=== PATIENT | female | born 1985 ===

== ENCOUNTER 2022-11-01 08:40 | Emergency (ER) | payer OTHER, SELFPAY ==
--- NOTE | ~2022-11-01 | XR_ITS ---
EXAMINATION: XR CHEST CLINICAL INFORMATION: Cough. Covid infection. COMPARISON: None available. TECHNIQUE: Frontal view of the chest was obtained. FINDINGS: No significant abnormality is noted involving the heart, lungs, mediastinum, bony thorax or soft tissues. XR/XR chest 1V IMPRESSION: Unremarkable examination.
[2022-11-01 09:05] VITALS: BP 158/109; PULSE 103; RESP 22; TEMP 36.9; O2SAT 98; BMI 36.4
[2022-11-01 09:53] LABS: Influenza A PCR NEGATIVE (Negative); Influenza B PCR NEGATIVE (Negative); Resp Syncy Virus RNA Qual PCR NEGATIVE (Negative); SARS COV2 PCR INHOUSE POSITIVE (Negative)
[2022-11-01 10:15] VITALS: BP 159/95; PULSE 102; RESP 18; O2SAT 99
--- NOTE | 2022-11-01 10:38 | ED.URI ---
HPI - URI/Sore Throat General Chief Complaint: Upper Respiratory Symptoms Stated Complaint: cough sob Time Seen by Provider: 11/01/22 10:12 Source: patient, RN notes reviewed and old records reviewed Mode of arrival: ambulatory History of Present Illness HPI Narrative: 37-year-old female with no significant past medical history presenting to the ED complaining of nonproductive cough, SOB, chest discomfort at night x few days. Also reports posttussive emesis. Admits last night chest pain sharp & worse with breathing, denies at present. 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 Denies fever, chills, recent travel, sore throat, pedal edema, history of clots MD elicited complaint: cough Related Data Allergies Allergy/AdvReac Type Severity Reaction Status Date / Time No Known Allergies Allergy Verified 11/01/22 09:08 Review of Systems Review of Systems: Constitutional: No Fever, No Chills, No Fatigue, No Malaise ENT/Mouth: No Hearing loss, No Ear Pain, + Nasal Congestion, No Sinus Pain, No Hoarseness, No sore throat, No Rhinorrhea, No Swallowing Difficulty Eyes: No Eye Pain, No Swelling, No Redness, No Vision Changes Cardiovascular: + Chest Pain, + SOB, No Orthopnea, No Edema, No Palpitations Respiratory: + Cough, No Sputum, No Wheezing, No Smoke Exposure, No Dyspnea Gastrointestinal: No Nausea, No Vomiting, No Diarrhea, No Constipation, No Abdominal pain Genitourinary: No Dysuria, No Urinary Frequency, No Flank Pain Musculoskeletal: No joint pain, No Myalgias, No Joint Swelling Skin: No Skin Lesions, No rash Neuro: No Weakness, No Numbness, No Headache Yes all other systems are reviewed and are negative Constitutional: Constitutional: Reports as per [facility] Past Medical History Attestation statement: The following information was validated with the patient. Source: old records reviewed Social History Social History Advance Directives: No Advance Directives Information Provided: Yes Physical Exam Vital Signs: Vital Signs: Last Vital Signs Temp 98.4 F 11/01/22 09:05 Pulse 102 H 11/01/22 10:15 Resp 18 11/01/22 10:15 BP 159/95 H 11/01/22 10:15 Pulse Ox 99 11/01/22 10:15 O2 Del Method Room Air 11/01/22 10:15 BMI result Body Mass Index 36.4 Const: General: cooperative, healthy appearing and no acute distress Orientation/consciousness: patient oriented x3 Limitations: no limitations HEENT: Head: Yes normal to inspection and Yes atraumatic Ears: hearing grossly normal bilaterally General nose exam: Normal external nose present Face and sinus: Yes normal facial exam Eyes: General: appearance normal, both eyes and all related structures EOM: EOMs intact bilaterally Neck: Neck: Yes normal visual inspection and Yes no meningeal signs Resp: Effort & Inspection: normal respiratory effort and no respiratory distress Auscultation: clear to auscultation bilaterally, no crackles and no wheezes Cardio: Rate: regular rate and tachycardic Heart sounds: S1 normal heart sound present and S2 normal heart sound present Skin: Rashes: no rashes Wounds: no wounds Neuro: General: patient oriented x3, tone normal and no meningeal signs Gait exam (Neuro): Normal gait present Extrem: General: Yes normal to inspection, Yes no pedal edema and Yes no calf tenderness Course Course Course Narrative: -COVID-19 positive -1241--no leukocytosis. D-dimer WNL, PE unlikely. Troponin WNL -chest x-ray unremarkable Results discussed with patient including worrisome signs and symptoms and strict return precautions, and when to return to the emergency department. They verbalized understanding and feel safe for discharge at this time. Medical Decision Making Medical Decision Making [facility] Narrative: 37-year-old female with no significant past medical history presenting to the ED complaining of nonproductive cough, SOB, chest discomfort at night x few days. On exam initially tachycardic, tachypneic, anxious/tearful, NAD, nontoxic appearing, lungs see taking no pedal edema/calf tenderness. Concern for viral illness including COVID-19 vs pneumonia or bronchitis. PE lower differential however cannot PERC out. No suspicion for ACS/CHF Plan: EKG, labs, CXR, COVID/flu/RSV testing Please refer to course for remaining clinical decision making, interpretation of labs/imaging results, and discussions with consultants and/or family members. Differential Diagnosis Differential Diagnoses: The differential diagnosis associated with the presentation includes As above Admission/Observation Consideration of admission/observation: Escalation of care including admission/observation considered Lab Data [facility] Lab Attestation statement: I reviewed the patient's lab results. 11/01/22 11:40 11/01/22 11:40 Labs: Lab Results 11/01/22 11/01/22 11/01/22 Range/Units 09:10 11:40 11:40 WBC 9.3 (4.8-10.8) X10*3/uL RBC 5.52 H (4.20-5.50) X10*6/uL Hgb 15.7 (12.0-16.0) g/dl Hct 47.7 H (37.0-47.0) % MCV 86.4 (80.0-98.0) fL MCH 28.4 (27.0-33.0) pg MCHC 32.9 (31.0-35.0) g/dl RDW 13.5 (11.0-16.0) % Plt Count 391 (160-400) X10*3/uL MPV 9.3 L (9.4-12.3) fL Immature Gran % (Auto) 0.4 (0.0-0.4) % Neut % (Auto) 81.2 H (45-73) % Lymph % (Auto) 7.1 L (20-40) % [place] % (Auto) 5.8 (2-11) % Eos % (Auto) 4.8 H (0-4) % Baso % (Auto) 0.7 (0-2) % Lymph # (Auto) 0.7 L (1.2-4.9) X10*3/uL [place] # (Auto) 0.5 (0.1-1.2) X10*3/uL Eos # (Auto) 0.5 H (0.0-0.4) X10*3/uL Baso # (Auto) 0.1 (0.0-0.2) X10*3/uL Abs Immat Gran (auto) 0.04 H (0.00-0.03) X10*3/uL Absolute Neuts (auto) 7.6 (2.0-8.3) x10*3/uL Absolute Nucleated RBC 0.000 (0.0-0.012) X10*3/uL Nucleated RBC % (auto) 0.0 (0.0-0.2) /100WBC D-Dimer High Sensitivty < 150 NG/ML Sodium (135-145) mmol/L Potassium (3.3-5.1) mmol/L Chloride (96-108) mmol/L Carbon Dioxide (22-29) mmol/L Anion Gap (12-20) BUN (9-16) mg/dL Creatinine (0.5-1.4) mg/dL Estim Creat Clear Calc Estimated GFR Random Glucose (60-115) mg/dL Calcium (8.4-10.2) mg/dL Troponin I High Sens (<3.5-17.0) ng/L Influenza Type A (PCR) NEGATIVE (Negative) Influenza Type B (PCR) NEGATIVE (Negative) RSV RNA Qual (PCR) NEGATIVE (Negative) SARS-CoV-2 RNA (RT-PCR) POSITIVE A (Negative) 11/01/22 11/01/22 Range/Units 11:40 11:40 WBC (4.8-10.8) X10*3/uL RBC (4.20-5.50) X10*6/uL Hgb (12.0-16.0) g/dl Hct (37.0-47.0) % MCV (80.0-98.0) fL MCH (27.0-33.0) pg MCHC (31.0-35.0) g/dl RDW (11.0-16.0) % Plt Count (160-400) X10*3/uL MPV (9.4-12.3) fL Immature Gran % (Auto) (0.0-0.4) % Neut % (Auto) (45-73) % Lymph % (Auto) (20-40) % [place] % (Auto) (2-11) % Eos % (Auto) (0-4) % Baso % (Auto) (0-2) % Lymph # (Auto) (1.2-4.9) X10*3/uL [place] # (Auto) (0.1-1.2) X10*3/uL Eos # (Auto) (0.0-0.4) X10*3/uL Baso # (Auto) (0.0-0.2) X10*3/uL Abs Immat Gran (auto) (0.00-0.03) X10*3/uL Absolute Neuts (auto) (2.0-8.3) x10*3/uL Absolute Nucleated RBC (0.0-0.012) X10*3/uL Nucleated RBC % (auto) (0.0-0.2) /100WBC D-Dimer High Sensitivty NG/ML Sodium 140 (135-145) mmol/L Potassium 3.7 (3.3-5.1) mmol/L Chloride 105 (96-108) mmol/L Carbon Dioxide 26 (22-29) mmol/L Anion Gap 13 (12-20) BUN 7 L (9-16) mg/dL Creatinine 0.76 (0.5-1.4) mg/dL Estim Creat Clear Calc 91.9 Estimated GFR > 60 Random Glucose 98 (60-115) mg/dL Calcium 9.7 (8.4-10.2) mg/dL Troponin I High Sens < 2.7 (<3.5-17.0) ng/L Influenza Type A (PCR) (Negative) Influenza Type B (PCR) (Negative) RSV RNA Qual (PCR) (Negative) SARS-CoV-2 RNA (RT-PCR) (Negative) Independent Interpretation I performed an independent interpretation of an: EKG (EKG sinus tachycardia rate of 106. QTC 441. No STEMI. Nonischemic) Radiology Impression Discussion of test interpretation with radiology: I have reviewed the radiologist's reading. External Record Review External record reviewed: Inpatient record, Office record, Outpatient record, Prior outpatient labs, Prior outpatient radiology, Primary care record and Outside ED record Tests considered The following testing was considered but not selected: As above Discharge Plan Discharge Clinical Impression: COVID-19 Patient Disposition: Home, Self-Care Instructions: COVID-19 (Coronavirus Disease 2019) (ED) Additional Instructions: At this time you will be okay for discharge. Please self isolate for 5 days. Do not expose yourself to others. You may not go to work or school. Please continue to follow cold instructions and wash your hands frequently. You may take Tylenol / Motrin as directed on the bottle for pain or fever. If you have constant or persistent shortness of breath, fever unresolved with medications, chest pain, or your unable to eat or drink please return to the ED CDC Guidelines for home isolation: - Stay away from others - WEAR A MASK if you are sick AND STAY HOME - Cover your mouth and nose with a tissue when you cough or sneeze. Dispose of tissues in a lined trash can and wash your hands immediately with soap and water for at least 20 seconds. If soap and water are not available, clean hands with alcohol-based hand director mobile that contains at least 60% alcohol. - Clean your hands often with soap and water for at least 20 seconds - Avoid touching your eyes, nose and mouth with unwashed hands - Do not share dishes, drinking glasses, cups, eating utensils, towels, or bedding with other people in your home. After using these items, wash them thoroughly with soap and water or put in the granite block paver. - Clean high-touch surfaces in your isolation area ( sick room and bathroom) every day; let a caregiver clean and disinfect high-touch surfaces in other areas of the home. Clean the area or item with soap and water or another detergent if it is dirty. Then, use a household disinfectant. - Limit contact with pets and animals: If you must care for a pet, wash your hands before and after interacting with them) Referrals: Physician,None [Primary Care Provider] - Interventions: ED Discharge Assessment Last Done: 11/01/22 13:26 Discharge Date/Time: 11/01/22 13:26
--- NOTE | 2022-11-01 10:45 | ECG_ITS ---
Test Reason : sob Blood Pressure : / mmHG Vent. Rate : 106 BPM Atrial Rate : 106 BPM P-R Int : 168 ms QRS Dur : 080 ms QT Int : 332 ms P-R-T Axes : 053 042 035 degrees QTc Int : 441 ms Sinus tachycardia Otherwise normal ECG No previous ECGs available Referred By: Krystyna Cabrera Electronically Signed By:Sabino Uribe
[2022-11-01 11:44] LABS: MANUAL DIFF FLAG NO
[2022-11-01 11:58] LABS: Basophils Absolute Auto 0.1 X10*3/uL (0.0-0.2); Basophils Percent Auto 0.7 % (0-2); Eosinophils Absolute Auto 0.5 X10*3/uL (0.0-0.4); Eosinophils Percent Auto 4.8 % (0-4); Hematocrit 47.7 % (37.0-47.0); Hemoglobin 15.7 g/dl (12.0-16.0); Imm Gran Abs Auto 0.04 X10*3/uL (0.00-0.03); Imm Gran Pct Auto 0.4 % (0.0-0.4); Lymphocytes Absolute Auto 0.7 X10*3/uL (1.2-4.9); Lymphocytes Percent Auto 7.1 % (20-40); Mean Corpuscular HGB Conc 32.9 g/dl (31.0-35.0); Mean Corpuscular Hemoglobin 28.4 pg (27.0-33.0); Mean Corpuscular Volume 86.4 fL (80.0-98.0); Mean Platelet Volume 9.3 fL (9.4-12.3); Monocytes Absolute Auto 0.5 X10*3/uL (0.1-1.2); Monocytes Percent Auto 5.8 % (2-11); Neutrophils Absolute Auto 7.6 x10*3/uL (2.0-8.3); Neutrophils Percent Auto 81.2 % (45-73); Platelet Count 391 X10*3/uL (160-400); Red Blood Count 5.52 X10*6/uL (4.20-5.50); Red Cell Distribution Width 13.5 % (11.0-16.0); White Blood Count 9.3 X10*3/uL (4.8-10.8)
[2022-11-01 12:06] LABS: Anion Gap 13 (12-20); Blood Urea Nitrogen 7 mg/dL (9-16); Calcium 9.7 mg/dL (8.4-10.2); Carbon Dioxide 26 mmol/L (22-29); Chloride 105 mmol/L (96-108); Creatinine Clr Calc Pharmacy 91.9; Estimated Glomerular Filt Rate > 60; Glucose Random 98 mg/dL (60-115); Potassium 3.7 mmol/L (3.3-5.1); Sodium 140 mmol/L (135-145)
[2022-11-01 12:16] LABS: Troponin-I High Sensitivity < 2.7 ng/L (<3.5-17.0)
[2022-11-01 12:29] LABS: D Dimer High Sensitivity < 150 NG/ML
== END 2022-11-01 13:26 | disposition home or self-care (01) ==
PROVIDERS: Physician Assistant; Emergency Provider Emergency Medicine
DX: U07.1 COVID-19 (principal); R06.02 Shortness of breath
CPT/HCPCS: 0241U; 36415; 71045; 80048; 84484; 85025; 85379; 93005; 99283

== ENCOUNTER 2022-11-22 12:34 | Emergency (ER) | payer OTHER, SELFPAY ==
--- NOTE | ~2022-11-22 | XR_ITS ---
EXAMINATION: XR CHEST CLINICAL INFORMATION: Wheezing. COMPARISON: 6 10/28/2022 chest radiograph. TECHNIQUE: 2 views of the chest were obtained. FINDINGS: No significant abnormality is noted involving the heart, lungs, mediastinum, bony thorax or soft tissues. XR/XR chest 2V IMPRESSION: No acute cardiopulmonary process.
[2022-11-22 12:36] VITALS: BP 152/101; PULSE 121; RESP 20; TEMP 36.3; O2SAT 100; BMI 36.1
--- NOTE | 2022-11-22 12:37 | ED.GENADULT ---
HPI - General Adult General Chief complaint: Dyspnea Stated complaint: Diff Breathing Time Seen by Provider: 11/22/22 13:28 Source: patient and RN notes reviewed Mode of arrival: ambulatory Limitations: no limitations History of Present Illness HPI narrative: This is a 37-year-old female, with no known past medical history, presenting to the emergency department with shortness of breath since last night. Patient reports that she had COVID-19 in October. Patient reports that she has no history of asthma. Denies any fevers, chills, chest pain, palpitations, nausea, abdominal pain, vomiting or diarrhea. No other complaints or concerns at this time. MD complaint: Shortness of breath Onset (ago): day(s) Relieving factors: none Exacerbating factors: none Associated symptoms: denies other symptoms Treatments prior to arrival: none Related Data Previous Rx's Medication Instructions Recorded albuterol sulfate 2.5 mg/0.5 mL 5 mg inhalation Q6H PRN shortness 11/22/22 solution for nebulization of breath or wheezing #30 ea albuterol sulfate 90 mcg/actuation 1 inh inhalation QID PRN shortness 11/22/22 aerosol inhaler of breath or wheezing #6.7 grams benzonatate 100 mg capsule 100 mg PO BID PRN cough #14 caps 11/22/22 prednisone 50 mg tablet 50 mg PO DAILY 4 days #4 tabs 11/22/22 Allergies Allergy/AdvReac Type Severity Reaction Status Date / Time No Known Allergies Allergy Verified 11/01/22 09:08 Review of Systems Review of Systems: Constitutional: No Weight loss, No Fever, No Chills ENT/Mouth: No Ear Pain, No Nasal Congestion, No Sinus Pain, No Hoarseness, No sore throat, No Rhinorrhea, No Swallowing Difficulty Cardiovascular: No Chest Pain, +SOB Respiratory: No Cough, No Sputum, +Wheezing Gastrointestinal: No Nausea, No Vomiting, No Diarrhea, No Constipation, No Abdominal pain Genitourinary: No Dysuria, No Urinary Frequency, No Hematuria, No Urinary Incontinence/retention, No Urgency, No Flank Pain Musculoskeletal: No joint pain, No Myalgias, No Joint Swelling Skin: No Skin Lesions, No rash Neuro: No Weakness, No Numbness, No Paresthesias Yes all other systems are reviewed and are negative Constitutional: Constitutional: Reports as per [facility] Social History Social History Alcohol intake: never Smoked in Last 30 Days: No Use of substances other than those prescribed or required for medical reasons: No Advance Directives: No Physical Exam ED Vital Signs: Vital Signs - 24 hr 11/22/22 12:36 11/22/22 13:44 11/22/22 15:15 Temperature 97.4 F Pulse Rate 121 H 121 H 121 H Respiratory Rate 20 16 18 Blood Pressure 152/101 H 139/89 Pulse Oximetry 100 98 Oxygen Delivery Method Room Air Room Air BMI result Body Mass Index 36.1 Const General: cooperative, comfortable and no acute distress Orientation/consciousness: patient oriented x3 Limitations: no limitations HENMT Head: Yes normal to inspection, Yes normocephalic and Yes atraumatic Ears: hearing grossly normal bilaterally General nose exam: Normal external nose present Face and sinus: Yes normal facial exam Mouth: Normal oral and palatal mucosa present, oropharynx normal and moist mucous membranes Throat: Yes posterior oropharynx normal Eyes General: appearance normal, both eyes and all related structures Eyelids: Yes eyelids normal Conjunctivae: conjunctivae normal Sclerae: sclerae normal Pupils: Equal, round and reactive pupils present EOM: EOMs intact bilaterally Neck Neck: Yes normal visual inspection, Yes full ROM and Yes no lymphadenopathy Lymphatic: no lymphadenopathy noted Chest Chest palpation & inspection: normal inspection of the chest Resp Other: right lower lung with inspiratory and expiratory wheezes. Effort & Inspection: normal respiratory effort and able to speak in complete sentences Cardio Rate: regular rate Rhythm: regular rhythm Heart sounds: S1 normal heart sound present and S2 normal heart sound present GI Inspection: Yes normal to inspection Skin General skin exam: no rashes or lesions noted Trauma: no lacerations or abrasions Wounds: no wounds Neuro General: patient oriented x3 and moves all extremities Cranial nerves: Yes Equal, round and reactive pupils present Extrem General: Yes normal to inspection Right upper extremity: normal to inspection Left upper extremity: normal to inspection Right lower extremity: normal to inspection Left lower extremity: normal to inspection Course Course Course Narrative: This is an RME: Additional HPI, ROS, PE not included below will be deferred to primary provider. Patient is a 37-year-old female with history of Covid infection earlier this month, nonsmoker, presenting to the emergency department with shortness of breath since last night. Denies history of asthma. Wheezing L>R. Reports pain with deep inspiration. Denies fever. Tachycardic, elevated BP. Plan: EKG, labs, CXR Medications Administered Discontinued Medications Generic Name Dose Route Start Last Admin Trade Name Adamaris PRN Reason Stop Dose Admin Acetaminophen 975 mg 11/22/22 13:55 11/22/22 14:06 Acetaminophen 325 Mg Tablet PO 11/22/22 13:56 975 mg ONCE ONE Administration Albuterol Sulfate 5 mg 11/22/22 13:33 11/22/22 13:43 Albuterol Sulfate (0.083%) 2.5 Mg/3 Ml Vial.Neb INHALE 11/22/22 13:34 5 mg ONCE ONE Administration Sodium Chloride 1,000 mls @ 999 mls/hr 11/22/22 13:56 11/22/22 16:22 Ns IV 11/22/22 14:56 Infused .Q1H1M ONE Infusion Methylprednisolone Sodium Succinate 125 mg 11/22/22 13:33 11/22/22 13:39 Methylprednisolone Sod Succ 125 Mg/2 Ml Vial IVPUSH 11/22/22 13:34 125 mg ONCE ONE Administration Medical Decision Making Medical Decision Making [facility] Narrative: 37-year-old female presenting to the emergency department with complaints of shortness of breath since last night. Patient tachycardic at 121 lungs with inspiratory and expiratory wheezes in the right lower base. Mildly hypertensive at 152/101. Patient is afebrile. Chest x-ray, EKG, basic labs ordered. Patient given 125 IV Solu-Medrol and 5 mg albuterol updraft. Wheezing has resolved. After updraft, patient is feeling much better, is still tachycardic however likely due to albuterol. Patient has had no chest pain or palpitations. PERC negative. Will treat with five-day course of steroids and given albuterol inhaler and nebulizer solution as daughter has nebulizer at home. Educated on return precautions. Patient understands and agrees with plan. Differential Diagnosis Differential Diagnoses: The differential diagnosis associated with the presentation includes Upper respiratory infection, pneumonia, reactive airway disease, pneumothorax Admission/Observation Consideration of admission/observation: Escalation of care including admission/observation considered Shortness of breath, tachycardic Lab Data [facility] Lab Attestation statement: I reviewed the patient's lab results. No leukocytosis, H and H within normal limits 11/22/22 13:24 11/22/22 13:24 Labs: Lab Results 11/22/22 11/22/22 11/22/22 Range/Units 13:24 13:24 13:24 WBC 7.8 (4.8-10.8) X10*3/uL RBC 5.07 (4.20-5.50) X10*6/uL Hgb 14.5 (12.0-16.0) g/dl Hct 43.5 (37.0-47.0) % MCV 85.8 (80.0-98.0) fL MCH 28.6 (27.0-33.0) pg MCHC 33.3 (31.0-35.0) g/dl RDW 14.2 (11.0-16.0) % Plt Count 426 H (160-400) X10*3/uL MPV 8.6 L (9.4-12.3) fL Immature Gran % (Auto) 0.4 (0.0-0.4) % Neut % (Auto) 79.8 H (45-73) % Lymph % (Auto) 6.5 L (20-40) % [place] % (Auto) 7.4 (2-11) % Eos % (Auto) 5.3 H (0-4) % Baso % (Auto) 0.6 (0-2) % Lymph # (Auto) 0.5 L (1.2-4.9) X10*3/uL [place] # (Auto) 0.6 (0.1-1.2) X10*3/uL Eos # (Auto) 0.4 (0.0-0.4) X10*3/uL Baso # (Auto) 0.1 (0.0-0.2) X10*3/uL Abs Immat Gran (auto) 0.03 (0.00-0.03) X10*3/uL Absolute Neuts (auto) 6.2 (2.0-8.3) x10*3/uL Absolute Nucleated RBC 0.000 (0.0-0.012) X10*3/uL Nucleated RBC % (auto) 0.0 (0.0-0.2) /100WBC Sodium 143 (135-145) mmol/L Potassium 3.5 (3.3-5.1) mmol/L Chloride 106 (96-108) mmol/L Carbon Dioxide 25 (22-29) mmol/L Anion Gap 16 (12-20) BUN 5 L (9-16) mg/dL Creatinine 0.73 (0.5-1.4) mg/dL Estim Creat Clear Calc 95.3 Estimated GFR > 60 Random Glucose 100 (60-115) mg/dL Calcium 10.3 H D (8.4-10.2) mg/dL Total Bilirubin 0.6 (0.0-1.0) mg/dL AST 22 (5-31) U/L ALT 29 (0-31) U/L Alkaline Phosphatase 92 (39-117) U/L Troponin I High Sens < 2.7 (<3.5-17.0) ng/L Total Protein 8.2 H (6.5-8.0) g/dL Albumin 4.5 (3.5-5.0) g/dL Beta HCG, Quant mIU/mL 11/22/22 Range/Units 13:24 WBC (4.8-10.8) X10*3/uL RBC (4.20-5.50) X10*6/uL Hgb (12.0-16.0) g/dl Hct (37.0-47.0) % MCV (80.0-98.0) fL MCH (27.0-33.0) pg MCHC (31.0-35.0) g/dl RDW (11.0-16.0) % Plt Count (160-400) X10*3/uL MPV (9.4-12.3) fL Immature Gran % (Auto) (0.0-0.4) % Neut % (Auto) (45-73) % Lymph % (Auto) (20-40) % [place] % (Auto) (2-11) % Eos % (Auto) (0-4) % Baso % (Auto) (0-2) % Lymph # (Auto) (1.2-4.9) X10*3/uL [place] # (Auto) (0.1-1.2) X10*3/uL Eos # (Auto) (0.0-0.4) X10*3/uL Baso # (Auto) (0.0-0.2) X10*3/uL Abs Immat Gran (auto) (0.00-0.03) X10*3/uL Absolute Neuts (auto) (2.0-8.3) x10*3/uL Absolute Nucleated RBC (0.0-0.012) X10*3/uL Nucleated RBC % (auto) (0.0-0.2) /100WBC Sodium (135-145) mmol/L Potassium (3.3-5.1) mmol/L Chloride (96-108) mmol/L Carbon Dioxide (22-29) mmol/L Anion Gap (12-20) BUN (9-16) mg/dL Creatinine (0.5-1.4) mg/dL Estim Creat Clear Calc Estimated GFR Random Glucose (60-115) mg/dL Calcium (8.4-10.2) mg/dL Total Bilirubin (0.0-1.0) mg/dL AST (5-31) U/L ALT (0-31) U/L Alkaline Phosphatase (39-117) U/L Troponin I High Sens (<3.5-17.0) ng/L Total Protein (6.5-8.0) g/dL Albumin (3.5-5.0) g/dL Beta HCG, Quant < 2 mIU/mL Independent Interpretation I performed an independent interpretation of an: EKG and Plain X-Ray Interpretation: I reviewed the x-ray, no consolidation seen, I agree with the radiology report. EKG sinus tachycardic at 107 beats per minute, no ST elevation or depression, IA interval 162, QTC 424 Radiology Impression Discussion of test interpretation with radiology: I have reviewed the radiologist's reading. Radiologist Impression: EXAMINATION: XR CHEST CLINICAL INFORMATION: Wheezing. COMPARISON: 6 10/28/2022 chest radiograph. TECHNIQUE: 2 views of the chest were obtained. FINDINGS: No significant abnormality is noted involving the heart, lungs, mediastinum, bony thorax or soft tissues. XR/XR chest 2V IMPRESSION: No acute cardiopulmonary process. Dictated By: Herve Hernandez MD Signed By: <Electronically signed by Herve Hernandez MD in OV> 11/22/22 1423 DD/ 1316 TD/TT:? 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 Your lab work was reassuring. Your lung sounds improved after receiving an albuterol updraft and IV steroids. Please take prescribed medications as directed. Drink plenty of fluids get plenty of rest. If any new or worsening symptoms occur please return for re-evaluation. Follow-up with your primary care physician. Prescriptions: New albuterol sulfate 90 mcg/actuation HFA aerosol inhaler 1 inh inhalation QID PRN (Reason: shortness of breath or wheezing) Qty: 6.7 0RF albuterol sulfate 2.5 mg/0.5 mL solution for nebulization 5 mg inhalation Q6H PRN (Reason: shortness of breath or wheezing) Qty: 30 0RF prednisone 50 mg tablet 50 mg PO DAILY 4 Days Qty: 4 0RF Rx Instructions: Start 11/23/2022 benzonatate 100 mg capsule 100 mg PO BID PRN (Reason: cough) Qty: 14 0RF Interventions: ED Discharge Assessment Last Done: 11/22/22 16:34 Discharge Date/Time: 11/22/22 16:34
--- NOTE | 2022-11-22 12:39 | ECG_ITS ---
Test Reason : SOB Blood Pressure : / mmHG Vent. Rate : 107 BPM Atrial Rate : 107 BPM P-R Int : 162 ms QRS Dur : 076 ms QT Int : 318 ms P-R-T Axes : 064 061 047 degrees QTc Int : 424 ms Sinus tachycardia Nonspecific ST abnormality Abnormal ECG When compared with ECG of 01-NOV-2022 11:23, No significant change was found Referred By: Marlene Pfeiffer Electronically Signed By:Sabino Uribe
[2022-11-22 13:30] LABS: MANUAL DIFF FLAG NO
[2022-11-22 13:35] LABS: Basophils Absolute Auto 0.1 X10*3/uL (0.0-0.2); Basophils Percent Auto 0.6 % (0-2); Eosinophils Absolute Auto 0.4 X10*3/uL (0.0-0.4); Eosinophils Percent Auto 5.3 % (0-4); Hematocrit 43.5 % (37.0-47.0); Hemoglobin 14.5 g/dl (12.0-16.0); Imm Gran Abs Auto 0.03 X10*3/uL (0.00-0.03); Imm Gran Pct Auto 0.4 % (0.0-0.4); Lymphocytes Absolute Auto 0.5 X10*3/uL (1.2-4.9); Lymphocytes Percent Auto 6.5 % (20-40); Mean Corpuscular HGB Conc 33.3 g/dl (31.0-35.0); Mean Corpuscular Hemoglobin 28.6 pg (27.0-33.0); Mean Corpuscular Volume 85.8 fL (80.0-98.0); Mean Platelet Volume 8.6 fL (9.4-12.3); Monocytes Absolute Auto 0.6 X10*3/uL (0.1-1.2); Monocytes Percent Auto 7.4 % (2-11); Neutrophils Absolute Auto 6.2 x10*3/uL (2.0-8.3); Neutrophils Percent Auto 79.8 % (45-73); Platelet Count 426 X10*3/uL (160-400); Red Blood Count 5.07 X10*6/uL (4.20-5.50); Red Cell Distribution Width 14.2 % (11.0-16.0); White Blood Count 7.8 X10*3/uL (4.8-10.8)
[2022-11-22] MEDS: methylPREDNISolone Sod Succ 125 MG/2 ML VIAL IVPUSH (13:39)
[2022-11-22] MEDS: Albuterol Sulfate (0.083%) 2.5 MG/3 ML VIAL.NEB 5 MG INHALE (13:43)
[2022-11-22 13:44] VITALS: PULSE 121; RESP 16; O2SAT 100
[2022-11-22 13:50] LABS: Alanine Aminotransferase 29 U/L (0-31); Albumin Level 4.5 g/dL (3.5-5.0); Alkaline Phosphatase 92 U/L (39-117); Anion Gap 16 (12-20); Aspartate Amino Transferase 22 U/L (5-31); Bilirubin Total 0.6 mg/dL (0.0-1.0); Blood Urea Nitrogen 5 mg/dL (9-16); Calcium 10.3 mg/dL (8.4-10.2); Carbon Dioxide 25 mmol/L (22-29); Chloride 106 mmol/L (96-108); Creatinine Clr Calc Pharmacy 95.3; Estimated Glomerular Filt Rate > 60; Glucose Random 100 mg/dL (60-115); Potassium 3.5 mmol/L (3.3-5.1); Sodium 143 mmol/L (135-145); Total Protein 8.2 g/dL (6.5-8.0)
[2022-11-22] MEDS: 0.9 % Sodium Chloride 1,000 ML 999 ML IV (13:59)
[2022-11-22 14:01] LABS: HCG Quantitative < 2 mIU/mL; Troponin-I High Sensitivity < 2.7 ng/L (<3.5-17.0)
[2022-11-22] MEDS: Acetaminophen 325 MG TABLET 975 MG PO (14:06)
--- NOTE | 2022-11-22 14:07 | PC.NURSE ---
pt medicated per JUL- NS infusing per order APAP 975 given for 8/10 headache pain
--- NOTE | 2022-11-22 15:13 | PC.NURSE ---
pt reporting that headache has improved, but reports nausea and spitting up phlegm/saliva with cough. pt tachy 120s, BP 139/89. fluids infusing per mar.
[2022-11-22 15:15] VITALS: BP 139/89; PULSE 121; RESP 18; O2SAT 98
== END 2022-11-22 16:34 | disposition home or self-care (01) ==
PROVIDERS: Registered Nurse Emergency; Emergency Provider Emergency Medicine
DX: R06.02 Shortness of breath (principal); R06.2 Wheezing; R00.0 Tachycardia, unspecified; Z79.899 Other long term (current) drug therapy
CPT/HCPCS: 36415; 71046; 80053; 84484; 84702; 85025; 93005; 94640; 96361; 96374; 99284; 99285; J2930

== ENCOUNTER 2023-06-06 08:24 | Emergency (ER) | payer OTHER, SELFPAY ==
--- NOTE | ~2023-06-06 | XR_ITS ---
EXAMINATION: XR CHEST CLINICAL INFORMATION: Cough/SOB COMPARISON: None available. TECHNIQUE: 2 views of the chest were obtained. FINDINGS: No significant abnormality is noted involving the heart, lungs, mediastinum, bony thorax or soft tissues. XR/XR chest 2V IMPRESSION: Unremarkable chest examination.
[2023-06-06 08:50] VITALS: BP 155/100; PULSE 86; RESP 19; TEMP 36.6; O2SAT 98; BMI 30.3
[2023-06-06 09:56] LABS: Influenza A PCR NEGATIVE (Negative); Influenza B PCR NEGATIVE (Negative); Resp Syncy Virus RNA Qual PCR NEGATIVE (Negative); SARS COV2 PCR INHOUSE NEGATIVE (Negative)
[2023-06-06 12:33] VITALS: PULSE 84; RESP 18; O2SAT 98
[2023-06-06] MEDS: Albuterol Sulfate 90 MCG 8 GM INHALER 2 PUFF INHALE (12:33)
--- NOTE | 2023-06-06 12:43 | ED_ITS ---
HPI - URI/Sore Throat General Chief Complaint: Upper Respiratory Symptoms Stated Complaint: Asthma Time Seen by Provider: 06/06/23 11:25 Source: patient, RN notes reviewed and old records reviewed Mode of arrival: ambulatory History of Present Illness HPI Narrative: 37-year-old female with no significant past medical history presenting to the ED complaining of dry cough, SOB, and wheezing x few days. States her house heater is currently not working and feels this is exacerbating symptoms. Admits to using inhaler at home without relief, has had respiratory issues since COVID-19 last year. Denies known fever, chest pain, trouble, pedal edema. +sick contact MD elicited complaint: cough Related Data Previous Rx's Medication Instructions Recorded albuterol sulfate 2.5 mg/0.5 mL 5 mg inhalation Q6H PRN shortness 11/22/22 solution for nebulization of breath or wheezing #30 ea albuterol sulfate 90 mcg/actuation 1 inh inhalation QID PRN shortness 11/22/22 aerosol inhaler of breath or wheezing #6.7 grams benzonatate 100 mg capsule 100 mg PO BID PRN cough #14 caps 11/22/22 prednisone 50 mg tablet 50 mg PO DAILY 4 days #4 tabs 11/22/22 benzonatate 100 mg capsule 100 mg PO TID PRN cough #14 caps 06/06/23 Allergies Allergy/AdvReac Type Severity Reaction Status Date / Time No Known Allergies Allergy Verified 06/06/23 08:50 Review of Systems Review of Systems: Constitutional: No Fever, No Chills ENT/Mouth: No Ear Pain, + Nasal Congestion, No Sinus Pain, No Hoarseness, No sore throat, No Rhinorrhea, No Swallowing Difficulty Cardiovascular: No Chest Pain, + SOB Respiratory: + Cough, No Sputum, No Wheezing Gastrointestinal: No Nausea, No Vomiting, No Diarrhea, No Constipation, No Abdominal pain Musculoskeletal: No joint pain, No Myalgias, No Joint Swelling Skin: No Skin Lesions, No rash Neuro: No Weakness Yes all other systems are reviewed and are negative Constitutional: Constitutional: Reports as per [facility] Past Medical History Attestation statement: The following information was validated with the patient. Source: old records reviewed Onset Date is defined in the Problem List Problems that require an onset date and time if occurred within 24 hrs of arrival to the ED Aortic Dissection and Rupture; Neurologic impairment; Cardiopulmonary Arrest; Endotracheal Intubation; Insertion or Replacement of Mechanical Circulatory Assist Device Social History Social History Alcohol intake: never Advance Directives: No Physical Exam Vital Signs: Vital Signs: Last Vital Signs Temp 98 F 06/06/23 08:50 Pulse 82 06/06/23 12:55 Resp 16 06/06/23 12:55 BP 145/104 H 06/06/23 12:55 Pulse Ox 99 06/06/23 12:55 O2 Del Method Room Air 06/06/23 12:55 BMI result Body Mass Index 30.3 Const: General: cooperative, healthy appearing and no acute distress Orientation/consciousness: patient oriented x3 Limitations: no limitations HEENT: Head: Yes normal to inspection and Yes atraumatic Ears: hearing grossly normal bilaterally General nose exam: Normal external nose present Face and sinus: Yes normal facial exam Mouth: Normal oral and palatal mucosa present Throat: Yes posterior oropharynx normal, Yes uvula midline and No peritonsillar mass Eyes: General: appearance normal, both eyes and all related structures EOM: EOMs intact bilaterally Neck: Neck: Yes normal visual inspection and Yes no meningeal signs Resp: Effort & Inspection: normal respiratory effort and no respiratory distr ess Auscultation: clear to auscultation bilaterally, no crackles and no wheezes Cardio: Rate: regular rate Heart sounds: S1 normal heart sound present and S2 normal heart sound present GI: Inspection: Yes normal to inspection Palpation (GI): Soft to palpation, nontender, no guarding and not rigid Skin: Rashes: no rashes Wounds: no wounds Neuro: General: patient oriented x3, tone normal and no meningeal signs Cranial nerves: Yes CN's II-XII intact bilaterally Gait exam (Neuro): Normal gait present Extrem: General: Yes normal to inspection Course Course Course Narrative: -viral testing negative Results discussed with patient including worrisome signs and symptoms and strict return precautions, and when to return to the emergency department. They verbalized understanding and feel safe for discharge at this time. Medications Administered Discontinued Medications Generic Name Dose Route Start Last Admin Trade Name Freq PRN Reason Stop Dose Admin Albuterol Sulfate 2 puff 06/06/23 12:10 06/06/23 12:33 Albuterol Sulfate 90 Mcg 8 Gm Inhaler INHALE 06/06/23 12:11 2 puff ONCE ONE Administration Medical Decision Making Medical Decision Making [facility] Narrative: 37-year-old female with no significant past medical history presenting to the ED complaining of dry cough, SOB, and wheezing x few days. States her house heater is currently not working and feels this is exacerbating symptoms. On exam hypertensive, NAD, nontoxic appearing, no respiratory distress/talking in complete sentences, lungs CTA. Concern for viral illness. Rule out pneumonia versus bronchitis very low suspicion for ACS/PE Plan: Viral testing, CXR, albuterol oral inhaler Please refer to course for remaining clinical decision making, interpretation of labs/imaging results, and discussions with consultants and/or family members. Differential Diagnosis Differential Diagnoses: The differential diagnosis associated with the presentation includes As above Lab Data [facility] Lab Attestation statement: I reviewed the patient's lab results. Labs: Lab Results 06/06/23 Range/Units 09:09 Influenza Type A (PCR) NEGATIVE (Negative) Influenza Type B (PCR) NEGATIVE (Negative) RSV RNA Qual (PCR) NEGATIVE (Negative) SARS-CoV-2 RNA (RT-PCR) NEGATIVE (Negative) Independent Interpretation I performed an independent interpretation of an: Plain X-Ray Radiology Impression Discussion of test interpretation with radiology: I have reviewed the radiologist's reading. External Record Review External record reviewed: Inpatient record, Office record, Outpatient record, Prior outpatient labs, Prior outpatient radiology, Primary care record and Outside ED record Tests considered The following testing was considered but not selected: As above Prescription Management I considered prescription management with: Pain Medication, Antiviral and Antibiotic Discharge Plan Discharge Clinical Impression: Upper respiratory infection Patient Disposition: Home, Self-Care Instructions: Viral Syndrome (ED) Additional Instructions: You have a virus No antibiotics are indicated at this time Make sure you are staying hydrated. Drink plenty of fluids. Rest Alternate Tylenol and Motrin at home as needed for body aches and fever Follow-up with your doctor. If symptoms persist or worsen return to the emergency department *If you are a child & not tolerating liquid or urinating for more than 6 hours, or fevers are uncontrolled with medications at home, return to the emergency department* Prescriptions: New benzonatate 100 mg capsule 100 mg PO TID PRN (Reason: cough) Qty: 14 0RF No Action albuterol sulfate 90 mcg/actuation HFA aerosol inhaler 1 inh inhalation QID PRN (Reason: shortness of breath or wheezing) Qty: 6.7 0RF albuterol sulfate 2.5 mg/0.5 mL solution for nebulization 5 mg inhalation Q6H PRN (Reason: shortness of breath or wheezing) Qty: 30 0RF prednisone 50 mg tablet 50 mg PO DAILY 4 Days Qty: 4 0RF Rx Instructions: Start 11/23/2022 benzonatate 100 mg capsule 100 mg PO BID PRN (Reason: cough) Qty: 14 0RF Referrals: Physician,Unknown J [Primary Care Provider] - Stand Alone Forms: Work/School Release Interventions: ED Discharge Assessment Last Done: 06/06/23 13:34 Discharge Date/Time: 06/06/23 13:35
[2023-06-06 12:55] VITALS: BP 145/104; PULSE 82; RESP 16; O2SAT 99
== END 2023-06-06 13:35 | disposition home or self-care (01) ==
PROVIDERS: Emergency Provider Emergency Medicine Emergency Medical Services
DX: J06.9 Acute upper respiratory infection, unspecified (principal); R05.9 Cough, unspecified; R06.02 Shortness of breath; Z20.822 Contact with and (suspected) exposure to COVID-19; Z20.828 Contact with and (suspected) exposure to other viral communicable diseases
CPT/HCPCS: 0241U; 71046; 94640; 94664; 99284

== ENCOUNTER 2023-06-11 12:26 | Emergency (ER) | payer OTHER, SELFPAY ==
--- NOTE | ~2023-06-11 | XR_ITS ---
EXAMINATION: XR CHEST CLINICAL INFORMATION: Chest pain and shortness of breath COMPARISON: Chest x-ray on 06/06/2023 TECHNIQUE: 2 views of the chest were obtained. FINDINGS: No significant abnormality is noted involving the heart, lungs, mediastinum, bony thorax or soft tissues. XR/XR chest 2V IMPRESSION: Unremarkable examination.
[2023-06-11 12:32] VITALS: BP 155/98; PULSE 126; RESP 20; TEMP 37.2; O2SAT 100; BMI 30.3
--- NOTE | 2023-06-11 12:33 | ED.GENADULT ---
HPI - General Adult General Chief complaint: Upper Respiratory Symptoms Stated complaint: Diff breathing Time Seen by Provider: 06/11/23 16:33 Source: patient and RN notes reviewed Mode of arrival: ambulatory Limitations: no limitations History of Present Illness HPI narrative: 37-year-old female presents for evaluation of shortness of breath and body aches. Her symptoms started last night into this morning. She reports that her daughter tested positive for the flu on Monday, 2 days ago The patient reports some mild shortness of breath over the last 3 weeks significantly worse since last night She denies any diagnosed history of asthma or COPD but has a nebulizer due to ?shortness of breath since COVID. ? She states that she feels better after getting nebulizer treatment in the ED Related Data Previous Rx's Medication Instructions Recorded albuterol sulfate 2.5 mg/0.5 mL 5 mg inhalation Q6H PRN shortness 11/22/22 solution for nebulization of breath or wheezing #30 ea albuterol sulfate 90 mcg/actuation 1 inh inhalation QID PRN shortness 11/22/22 aerosol inhaler of breath or wheezing #6.7 grams benzonatate 100 mg capsule 100 mg PO BID PRN cough #14 caps 11/22/22 prednisone 50 mg tablet 50 mg PO DAILY 4 days #4 tabs 11/22/22 benzonatate 100 mg capsule 100 mg PO TID PRN cough #14 caps 06/06/23 oseltamivir 75 mg capsule (Tamiflu) 75 mg PO BID 5 days #10 caps 06/11/23 Allergies Allergy/AdvReac Type Severity Reaction Status Date / Time No Known Allergies Allergy Verified 06/06/23 08:50 Review of Systems Constitutional: Constitutional: Reports body ache(s), Reports chills, Reports fever(s) and Reports headache(s) ENT: Reports headache(s) Cardiovascular: Cardiovascular: Reports chest pain and Reports dyspnea Respiratory: Respiratory: Reports cough and Reports dyspnea Gastrointestinal: Gastrointestinal: Denies abdominal pain, Reports nausea and Denies vomiting Musculoskeletal: Musculoskeletal: Denies back pain Integumentary/Breasts: Skin/Breast: Denies rash Neurologic: Reports headache(s) [facility] Social History Social History Alcohol intake: never Smoked in Last 30 Days: No Use of substances other than those prescribed or required for medical reasons: No Advance Directives: No Physical Exam ED Vital Signs: Vital Signs - 24 hr 06/11/23 12:32 06/11/23 16:30 06/11/23 16:53 Temperature 98.9 F 98.7 F Pulse Rate 126 H 125 H 114 H Respiratory Rate 20 22 H 18 Blood Pressure 155/98 H 153/115 H Pulse Oximetry 100 96 Oxygen Delivery Method Room Air Room Air 06/11/23 17:02 Temperature Pulse Rate Respiratory Rate Blood Pressure Pulse Oximetry 98 Oxygen Delivery Method Room Air BMI result Body Mass Index 30.3 Const General: healthy appearing, comfortable, no acute distress, alert and awake Nutritional Appearance: well nourished Orientation/consciousness: patient oriented x3 HENMT Head: Yes normocephalic and Yes atraumatic Eyes Eyelids: Yes eyelids normal Conjunctivae: conjunctivae normal Sclerae: sclerae normal Corneas: corneas normal Pupils: Equal, round and reactive pupils present EOM: EOMs intact bilaterally Neck Neck: Yes full ROM Resp Effort & Inspection: normal respiratory effort, able to speak in complete sentences, no audible wheezes and not labored Auscultation: clear to auscultation bilaterally GI Inspection: No distended Palpation (GI): Soft to palpation, not firm, nontender, no guarding and not rigid Skin General skin exam: elasticity normal Neuro General: patient oriented x3 Cranial nerves: Yes Equal, round and reactive pupils present and Yes Bilaterally intact EOM present Cognition (Neuro): normal cognition Extrem Other: Moving all extremities well without any obvious deformities Course Course Course Narrative: This is an RME: Additional HPI, ROS, PE not included below will be deferred to primary provider. 37-year-old female with no significant past medical history presenting to the ED complaining of dry cough, SOB, and wheezing x few days. She recently went to the ER and was diagnosed with a URI, prescribed nebulizer and rescue inhaler, after getting COVID last year she states that the shortness breath is getting worse. Plan: Labs, EKG,CXR, viral swabs Medications Administered Discontinued Medications Generic Name Dose Route Start Last Admin Trade Name Freq PRN Reason Stop Dose Admin Albuterol/Ipratropium 3 ml 06/11/23 16:47 06/11/23 16:53 Albuterol/Iprat 2.5/0.5mg 3 Ml Ampul.Neb INHALE 06/11/23 16:48 3 ml ONCE ONE Administration Sodium Chloride 1,000 mls @ 999 mls/hr 06/11/23 17:15 06/11/23 17:54 Ns IV 06/11/23 18:15 999 mls/hr .Q1H1M WAYNE Administration Ketorolac Tromethamine 30 mg 06/11/23 17:11 06/11/23 17:55 Ketorolac Tromethamine 30 Mg/Ml Vial IVPUSH 06/11/23 17:12 30 mg ONCE ONE Administration Ondansetron HCl 4 mg 06/11/23 17:32 06/11/23 17:55 Ondansetron Hcl 4 Mg/2 Ml Vial IVPUSH 06/11/23 17:33 4 mg ONCE ONE Administration Medical Decision Making Medical Decision Making [facility] Narrative: 37 your healthy female presents for evaluation of shortness of breath. She tested positive for influenza a which explains all of her symptoms. She was mildly tachycardic which is likely due to the influenza diagnosis as well as albuterol use. This was treated with IV fluids. She is not presenting septic. She will be discharged with Tamiflu and symptomatic care. Labs are reassuring, EKG is nonischemic repeat troponin was negative. Chest x-ray is without focal infiltrates Differential Diagnosis Differential Diagnoses: The differential diagnosis associated with the presentation includes Admission/Observation Consideration of admission/observation: Escalation of care including admission/observation considered Lab Data [facility] Lab Attestation statement: I reviewed the patient's lab results. Mild leukocytosis with no significant anemia. There is a mild left shift. No significant electrolyte abnormalities 06/11/23 12:54 06/11/23 12:54 Labs: Lab Results 06/11/23 06/11/23 Range/Units 12:54 17:06 WBC 11.0 H (4.8-10.8) X10*3/uL RBC 5.20 (4.20-5.50) X10*6/uL Hgb 15.0 (12.0-16.0) g/dl Hct 44.5 (37.0-47.0) % MCV 85.6 (80.0-98.0) fL MCH 28.8 (27.0-33.0) pg MCHC 33.7 (31.0-35.0) g/dl RDW 14.3 (11.0-16.0) % Plt Count 431 H (160-400) X10*3/uL MPV 8.4 L (9.4-12.3) fL Immature Gran % (Auto) 0.5 H (0.0-0.4) % Neut % (Auto) 85.1 H (45-73) % Lymph % (Auto) 5.4 L (20-40) % [place] % (Auto) 4.9 (2-11) % Eos % (Auto) 3.6 (0-4) % Baso % (Auto) 0.5 (0-2) % Lymph # (Auto) 0.6 L (1.2-4.9) X10*3/uL [place] # (Auto) 0.5 (0.1-1.2) X10*3/uL Eos # (Auto) 0.4 (0.0-0.4) X10*3/uL Baso # (Auto) 0.1 (0.0-0.2) X10*3/uL Abs Immat Gran (auto) 0.05 H (0.00-0.03) X10*3/uL Absolute Neuts (auto) 9.4 H (2.0-8.3) x10*3/uL Absolute Nucleated RBC 0.000 (0.0-0.012) X10*3/uL Nucleated RBC % (auto) 0.0 (0.0-0.2) /100WBC Sodium 141 (135-145) mmol/L Potassium 3.9 (3.3-5.1) mmol/L Chloride 106 (96-108) mmol/L Carbon Dioxide 24 (22-29) mmol/L Anion Gap 15 (12-20) BUN 6 L (9-16) mg/dL Creatinine 0.91 (0.5-1.4) mg/dL Estim Creat Clear Calc 69.6 Estimated GFR > 60 Random Glucose 101 (60-115) mg/dL Calcium 9.8 (8.4-10.2) mg/dL Total Bilirubin 0.3 (0.0-1.0) mg/dL AST 18 (5-31) U/L ALT 23 (0-31) U/L Alkaline Phosphatase 89 (39-117) U/L Troponin I High Sens < 2.7 < 2.7 (<3.5-17.0) ng/L Total Protein 8.2 H (6.5-8.0) g/dL Albumin 4.4 (3.5-5.0) g/dL COVID-19 (NAV) Negative (Negative) COVID-19 Clin Com See Note Influenza Type A (KUNAL) Positive A (Negative) Influenza Type B (KUNAL) Negative (Negative) Influenza A & B Note See Note Independent Interpretation I performed an independent interpretation of an: EKG (Sinus tachycardia rate of 119 beats minute. No ischemic changes) and Plain X-Ray (No focal infiltrate) Radiology Impression Discussion of test interpretation with radiology: I have reviewed the radiologist's reading. (Unremarkable chest x-ray) Discharge Plan Discharge Clinical Impression: Influenza A Patient Disposition: Home, Self-Care Instructions: Influenza (ED) Additional Instructions: Use ibuprofen/Tylenol as needed for fevers, body aches. Take Tamiflu twice daily for the next 5 days You may continue to use your albuterol inhalers as needed Follow-up with your primary doctor or return for new or worsening symptoms Prescriptions: New oseltamivir [Tamiflu] 75 mg capsule 75 mg PO BID 5 Days Qty: 10 0RF No Action albuterol sulfate 90 mcg/actuation HFA aerosol inhaler 1 inh inhalation QID PRN (Reason: shortness of breath or wheezing) Qty: 6.7 0RF albuterol sulfate 2.5 mg/0.5 mL solution for nebulization 5 mg inhalation Q6H PRN (Reason: shortness of breath or wheezing) Qty: 30 0RF prednisone 50 mg tablet 50 mg PO DAILY 4 Days Qty: 4 0RF Rx Instructions: Start 11/23/2022 benzonatate 100 mg capsule 100 mg PO BID PRN (Reason: cough) Qty: 14 0RF benzonatate 100 mg capsule 100 mg PO TID PRN (Reason: cough) Qty: 14 0RF
--- NOTE | 2023-06-11 12:36 | ECG_ITS ---
Test Reason : DYSPNEA Blood Pressure : / mmHG Vent. Rate : 119 BPM Atrial Rate : 119 BPM P-R Int : 164 ms QRS Dur : 076 ms QT Int : 302 ms P-R-T Axes : 072 072 047 degrees QTc Int : 424 ms Sinus tachycardia Possible Left atrial enlargement Borderline ECG When compared with ECG of 22-NOV-2022 13:34, No significant change was found Referred By: July Kearns Electronically Signed By:MIKE WAKEFIELD
[2023-06-11 13:01] LABS: MANUAL DIFF FLAG NO
[2023-06-11 13:02] LABS: Basophils Absolute Auto 0.1 X10*3/uL (0.0-0.2); Basophils Percent Auto 0.5 % (0-2); Eosinophils Absolute Auto 0.4 X10*3/uL (0.0-0.4); Eosinophils Percent Auto 3.6 % (0-4); Hematocrit 44.5 % (37.0-47.0); Imm Gran Abs Auto 0.05 X10*3/uL (0.00-0.03); Imm Gran Pct Auto 0.5 % (0.0-0.4); Lymphocytes Absolute Auto 0.6 X10*3/uL (1.2-4.9); Lymphocytes Percent Auto 5.4 % (20-40); Mean Corpuscular HGB Conc 33.7 g/dl (31.0-35.0); Mean Corpuscular Hemoglobin 28.8 pg (27.0-33.0); Mean Corpuscular Volume 85.6 fL (80.0-98.0); Mean Platelet Volume 8.4 fL (9.4-12.3); Monocytes Absolute Auto 0.5 X10*3/uL (0.1-1.2); Monocytes Percent Auto 4.9 % (2-11); Neutrophils Absolute Auto 9.4 x10*3/uL (2.0-8.3); Neutrophils Percent Auto 85.1 % (45-73); Platelet Count 431 X10*3/uL (160-400); Red Cell Distribution Width 14.3 % (11.0-16.0)
[2023-06-11 13:17] LABS: Alanine Aminotransferase 23 U/L (0-31); Albumin Level 4.4 g/dL (3.5-5.0); Alkaline Phosphatase 89 U/L (39-117); Anion Gap 15 (12-20); Aspartate Amino Transferase 18 U/L (5-31); Bilirubin Total 0.3 mg/dL (0.0-1.0); Blood Urea Nitrogen 6 mg/dL (9-16); Calcium 9.8 mg/dL (8.4-10.2); Carbon Dioxide 24 mmol/L (22-29); Chloride 106 mmol/L (96-108); Creatinine Clr Calc Pharmacy 69.6; Estimated Glomerular Filt Rate > 60; Glucose Random 101 mg/dL (60-115); Potassium 3.9 mmol/L (3.3-5.1); Sodium 141 mmol/L (135-145); Total Protein 8.2 g/dL (6.5-8.0)
[2023-06-11 13:18] LABS: IDNOW Serial# 6674DD1D; Influenza A Positive (Negative); Influenza B2 Negative (Negative)
[2023-06-11 13:21] LABS: COVID-19 Test Negative (Negative); IDNOW Serial# 58CA691E
[2023-06-11 13:24] LABS: Troponin-I High Sensitivity < 2.7 ng/L (<3.5-17.0)
[2023-06-11 16:30] VITALS: BP 153/115; PULSE 125; RESP 22; TEMP 37.1; O2SAT 96
[2023-06-11 16:53] VITALS: PULSE 114; RESP 18; O2SAT 96
[2023-06-11] MEDS: Albuterol/Iprat 2.5/0.5MG 3 ML AMPUL.NEB INHALE (16:53)
[2023-06-11 17:02] VITALS: O2SAT 98
[2023-06-11 17:42] LABS: Troponin-I High Sensitivity < 2.7 ng/L (<3.5-17.0)
[2023-06-11] MEDS: 0.9 % Sodium Chloride 1,000 ML 999 ML IV (17:54)
[2023-06-11] MEDS: ondansetron HCL 4 MG/2 ML VIAL IVPUSH (17:55)
[2023-06-11] MEDS: Ketorolac Tromethamine 30 MG/ML VIAL IVPUSH (17:55)
--- NOTE | 2023-06-11 17:59 | PC.NURSE ---
pt a&ox4, sinus tach, other vss, 20G IV placed R AC, medicated per MAR for generalized body aches/nausea, pt reports sob improved after breathing treatment. 1L NS running. no new orders at this time.
[2023-06-11 19:11] VITALS: BP 122/78; PULSE 131; RESP 20; O2SAT 97
[2023-06-11] MEDS: Albuterol Sulfate (0.083%) 2.5 MG/3 ML VIAL.NEB INHALE (19:18)
[2023-06-11 19:19] VITALS: PULSE 128; RESP 20; O2SAT 96
== END 2023-06-11 19:46 | disposition home or self-care (01) ==
PROVIDERS: Physician Assistant Medical; Emergency Provider Emergency Medicine
DX: J10.1 Influenza due to other identified influenza virus with other respiratory manifestations (principal); R06.02 Shortness of breath; M79.10 Myalgia, unspecified site; R00.0 Tachycardia, unspecified; Z11.52 Encounter for screening for COVID-19; Z79.899 Other long term (current) drug therapy
CPT/HCPCS: 36415; 71046; 80053; 84484; 85025; 87502; 87635; 93005; 94640; 96374; 96375; 99284; 99285; J1885; J2405

== ENCOUNTER → 2023-06-11 12:36 | Outpatient (BNV) | payer OTHER, SELFPAY | PROVIDERS: Emergency Provider Emergency Medicine; Visit Provider Internal Medicine | DX: R00.0 Tachycardia, unspecified (principal) | CPT/HCPCS: 93010 ==

== ENCOUNTER 2023-06-13 21:57 | Emergency (ER) | payer OTHER, SELFPAY ==
--- NOTE | 2023-06-13 | ECG_ITS ---
Test Reason : CP Blood Pressure : / mmHG Vent. Rate : 116 BPM Atrial Rate : 116 BPM P-R Int : 150 ms QRS Dur : 072 ms QT Int : 324 ms P-R-T Axes : 062 056 051 degrees QTc Int : 450 ms Sinus tachycardia Otherwise normal ECG When compared with ECG of 11-JUN-2023 12:51, No significant change was found Referred By: Generic ED Physician Electronically Signed By:MIKE WAKEFIELD
--- NOTE | ~2023-06-13 | XR_ITS ---
EXAMINATION: XR CHEST CLINICAL INFORMATION: Cough. COMPARISON: None available. TECHNIQUE: Frontal view of the chest was obtained. FINDINGS: No significant abnormality is noted involving the heart, lungs, mediastinum, bony thorax or soft tissues. XR/XR chest 1V IMPRESSION: Unremarkable chest exam.
[2023-06-13 22:55] VITALS: BP 155/95; PULSE 113; RESP 22; TEMP 37.3; O2SAT 96; BMI 32.3
[2023-06-13 23:30] LABS: MANUAL DIFF FLAG NO
[2023-06-13 23:31] LABS: Basophils Percent Auto 0.3 % (0-2); Eosinophils Absolute Auto 0.1 X10*3/uL (0.0-0.4); Eosinophils Percent Auto 0.8 % (0-4); Hematocrit 47.1 % (37.0-47.0); Hemoglobin 15.7 g/dl (12.0-16.0); Imm Gran Abs Auto 0.03 X10*3/uL (0.00-0.03); Imm Gran Pct Auto 0.3 % (0.0-0.4); Lymphocytes Absolute Auto 1.1 X10*3/uL (1.2-4.9); Lymphocytes Percent Auto 10.8 % (20-40); Mean Corpuscular HGB Conc 33.3 g/dl (31.0-35.0); Mean Corpuscular Hemoglobin 28.4 pg (27.0-33.0); Mean Corpuscular Volume 85.2 fL (80.0-98.0); Mean Platelet Volume 8.6 fL (9.4-12.3); Monocytes Absolute Auto 0.7 X10*3/uL (0.1-1.2); Monocytes Percent Auto 6.8 % (2-11); Neutrophils Absolute Auto 8.3 x10*3/uL (2.0-8.3); Platelet Count 420 X10*3/uL (160-400); Red Blood Count 5.53 X10*6/uL (4.20-5.50); Red Cell Distribution Width 14.1 % (11.0-16.0); White Blood Count 10.3 X10*3/uL (4.8-10.8)
[2023-06-13 23:49] LABS: Alanine Aminotransferase 25 U/L (0-31); Albumin Level 4.5 g/dL (3.5-5.0); Alkaline Phosphatase 79 U/L (39-117); Anion Gap 19 (12-20); Aspartate Amino Transferase 30 U/L (5-31); Bilirubin Total 0.4 mg/dL (0.0-1.0); Blood Urea Nitrogen 12 mg/dL (9-16); Calcium 9.7 mg/dL (8.4-10.2); Carbon Dioxide 22 mmol/L (22-29); Chloride 100 mmol/L (96-108); Creatinine Clr Calc Pharmacy 80.8; Estimated Glomerular Filt Rate > 60; Glucose Random 112 mg/dL (60-115); Potassium 3.5 mmol/L (3.3-5.1); Sodium 137 mmol/L (135-145); Total Protein 8.5 g/dL (6.5-8.0)
[2023-06-14 02:14] VITALS: BP 137/92; PULSE 117; RESP 18; TEMP 37.2; O2SAT 96
[2023-06-14 02:29] LABS: Appearance Urine Clear; Color Urine Yellow; Glucose Urine UA Negative (Negative); Leukocyte Esterase Urine Negative (Negative); Nitrite Urine Negative (Negative); PH 5.5 (5.0-9.0); Specific Gravity - Urine >= 1.030 (1.005-1.025); UMIC TRIGGER UACC YES; Urine Blood Moderate (2+) (Negative); Urine Ketones >=160 mg/dL (Negative); Urine Protein 30 (1+) mg/dL (Neg-Trace)
[2023-06-14 02:34] LABS: Bacteria Urine None Seen (None Seen); Hyaline Casts Urine 0-2 /LPF (0-2); WBC Urine 0-5 /HPF (0-5)
[2023-06-14 02:49] LABS: HCG Quantitative < 2 mIU/mL
[2023-06-14 05:53] VITALS: BP 138/84; PULSE 119; RESP 18; TEMP 37.2; O2SAT 97
[2023-06-14 07:51] VITALS: BP 160/109; PULSE 109; RESP 17; O2SAT 99
--- NOTE | 2023-06-14 08:06 | ED.NAVMDI ---
HPI - Nausea/Vomiting/Diarrhea General Chief complaint: General Medical Stated complaint: nauseous/vomiting x 3 days Time Seen by Provider: 06/14/23 07:36 Source: patient, family and old records reviewed Mode of arrival: ambulatory Limitations: no limitations History of Present Illness HPI Narrative: 37 yo female no sig PMH seen here monday after exposure to sick daughter - patient tested pos for flu a. she was discharged with tamiflu but cannot tolerate it and she has not been able to keep anything down. She was so weak she tried to stand and passed out two times no trauma. She has never been sick like this before. MD elicited complaint: nausea, vomiting, diarrhea and abdominal pain Related Data Previous Rx's Medication Instructions Recorded albuterol sulfate 2.5 mg/0.5 mL 5 mg inhalation Q6H PRN shortness 11/22/22 solution for nebulization of breath or wheezing #30 ea albuterol sulfate 90 mcg/actuation 1 inh inhalation QID PRN shortness 11/22/22 aerosol inhaler of breath or wheezing #6.7 grams benzonatate 100 mg capsule 100 mg PO BID PRN cough #14 caps 11/22/22 prednisone 50 mg tablet 50 mg PO DAILY 4 days #4 tabs 11/22/22 benzonatate 100 mg capsule 100 mg PO TID PRN cough #14 caps 06/06/23 oseltamivir 75 mg capsule (Tamiflu) 75 mg PO BID 5 days #10 caps 06/11/23 famotidine 20 mg tablet (Pepcid) 20 mg PO DAILY abdominal 06/14/23 discomfort 14 days #14 tabs ondansetron 4 mg disintegrating 4 mg PO Q8H PRN nausea and 06/14/23 tablet vomiting #20 tabs promethazine 25 mg rectal 25 mg AR Q6H PRN nausea and 06/14/23 suppository vomiting #12 ea Allergies Allergy/AdvReac Type Severity Reaction Status Date / Time No Known Allergies Allergy Verified 06/13/23 22:55 Review of Systems Review of Systems: Constitutional : No Weight loss, No Fever, pos Chills ENT/Mouth : No sore throat, No Rhinorrhea Eyes: No Swelling, No Redness Cardiovascular : No Chest Pain, No SOB, NoEdema Respiratory : No Cough, No Sputum, No Wheezing Gastrointestinal : Positive Nausea, Positive Vomiting, positive Diarrhea, positive abdominal Pain, No Hematochezia, No Melena Genitourinary : No Dysuria, No Urinary Frequency, No Hematuria, No Urgency Musculoskeletal : No joint pain, pos Myalgias, No Joint Swelling Skin : No Skin Lesions, No rash Neuro : No Weakness, No Numbness, No Dizziness, No Headache Psych : No Anxiety/Panic, No Depression Heme/Lymph: No Bruising, No Lymphadenopathy Endocrine : No Polyuria, No Polydipsia All other systems reviewed and are negative. [facility] Past Medical History Attestation statement: The following information was validated with the patient. Source: old records reviewed Onset Date is defined in the Problem List Problems that require an onset date and time if occurred within 24 hrs of arrival to the ED Aortic Dissection and Rupture; Neurologic impairment; Cardiopulmonary Arrest; Endotracheal Intubation; Insertion or Replacement of Mechanical Circulatory Assist Device Medical History COVID-19 Social History Social History (Updated 06/14/23 @ 08:10 by Nicole Turner DO) Alcohol intake: never Patient Tobacco Use Status: Never used Tobacco Smoked in Last 30 Days: No Use of substances other than those prescribed or required for medical reasons: No Advance Directives: No Patient : No Physical Exam Vital Signs: Vital Signs: Last Vital Signs Temp 98.0 F 06/14/23 09:10 Pulse 100 06/14/23 09:10 Resp 18 06/14/23 09:10 BP 141/94 H 06/14/23 09:10 Pulse Ox 97 06/14/23 09:10 O2 Del Method Room Air 06/14/23 09:10 BMI result Body Mass Index 32.3 Appearance: Alert. Oriented X3. No acute distress. Eyes: Pupils equal, round and reactive to light. ENT: Pharynx dry MM Neck: Normal inspection. Neck supple. CVS: tachycardic heart rate and rhythm. Pulses normal. Respiratory: No respiratory distress. Breath sounds normal. Abdomen: Soft and mild diffuse ttp Skin: Skin warm and dry. pale skin color. Normal skin turgor. Extremities: No lower extremity edema. No calf ttp Neuro: Oriented X 3. No motor deficit. No sensory deficit. Medications Administered Discontinued Medications Generic Name Dose Route Start Last Admin Trade Name Freq PRN Reason Stop Dose Admin Diphenhydramine HCl 25 mg 06/14/23 07:36 06/14/23 08:10 Diphenhydramine Hcl 50 Mg/Ml Vial IVPUSH 06/14/23 07:37 25 mg ONCE ONE Administration Sodium Chloride 1,000 mls @ 999 mls/hr 06/14/23 07:45 06/14/23 09:15 Ns IV 06/14/23 08:45 Infused .Q1H1M WAYNE Infusion Sodium Chloride 1,000 mls @ 999 mls/hr 06/14/23 07:45 06/14/23 09:34 Ns IV 06/14/23 08:45 999 mls/hr .Q1H1M WAYNE Administration Metoclopramide HCl 10 mg 06/14/23 07:36 06/14/23 08:10 Metoclopramide Hcl 10 Mg/2 Ml Vial IVPUSH 06/14/23 07:37 10 mg ONCE ONE Administration Medical Decision Making Medical Decision Making [facility] Narrative: 37 yo female with no sig PMH recent flu A diagnosis unable to tolerate tamiflu she is not vaccinated here with persistent n/v and unable to keep anything down with stomach cramps and now upon standing syncope x 2 no trauma reported - she is not on OCPs at this time will need basic labs, IVF x 2L, EKG, she appears dehydrated. Will obtain CXR to rule out pneumonia as well Differential Diagnosis Differential Diagnoses: The differential diagnosis associated with the presentation includes viral syndrome, GERD, gastritis, syncope, dehydration Admission/Observation Consideration of admission/observation: Escalation of care including admission/observation considered patient is feeling markedly better and able to tolerate PO will DC home with supportive medications Lab Data [facility] Lab Attestation statement: I reviewed the patient's lab results. 06/13/23 23:24 06/13/23 23:24 Labs: Lab Results 06/13/23 06/14/23 Range/Units 23:24 02:22 WBC 10.3 (4.8-10.8) X10*3/uL RBC 5.53 H (4.20-5.50) X10*6/uL Hgb 15.7 (12.0-16.0) g/dl Hct 47.1 H (37.0-47.0) % MCV 85.2 (80.0-98.0) fL MCH 28.4 (27.0-33.0) pg MCHC 33.3 (31.0-35.0) g/dl RDW 14.1 (11.0-16.0) % Plt Count 420 H (160-400) X10*3/uL MPV 8.6 L (9.4-12.3) fL Immature Gran % (Auto) 0.3 (0.0-0.4) % Neut % (Auto) 81.0 H (45-73) % Lymph % (Auto) 10.8 L (20-40) % [place] % (Auto) 6.8 (2-11) % Eos % (Auto) 0.8 (0-4) % Baso % (Auto) 0.3 (0-2) % Lymph # (Auto) 1.1 L (1.2-4.9) X10*3/uL [place] # (Auto) 0.7 (0.1-1.2) X10*3/uL Eos # (Auto) 0.1 (0.0-0.4) X10*3/uL Baso # (Auto) 0.0 (0.0-0.2) X10*3/uL Abs Immat Gran (auto) 0.03 (0.00-0.03) X10*3/uL Absolute Neuts (auto) 8.3 (2.0-8.3) x10*3/uL Absolute Nucleated RBC 0.000 (0.0-0.012) X10*3/uL Nucleated RBC % (auto) 0.0 (0.0-0.2) /100WBC Sodium 137 (135-145) mmol/L Potassium 3.5 (3.3-5.1) mmol/L Chloride 100 (96-108) mmol/L Carbon Dioxide 22 (22-29) mmol/L Anion Gap 19 (12-20) BUN 12 (9-16) mg/dL Creatinine 0.81 (0.5-1.4) mg/dL Estim Creat Clear Calc 80.8 Estimated GFR > 60 Random Glucose 112 (60-115) mg/dL Calcium 9.7 (8.4-10.2) mg/dL Total Bilirubin 0.4 (0.0-1.0) mg/dL AST 30 (5-31) U/L ALT 25 (0-31) U/L Alkaline Phosphatase 79 (39-117) U/L Total Protein 8.5 H (6.5-8.0) g/dL Albumin 4.5 (3.5-5.0) g/dL Lipase 15 (8-78) U/L Beta HCG, Quant < 2 mIU/mL Urine Color Yellow Urine Appearance Clear Urine pH 5.5 (5.0-9.0) Ur Specific [place] >= 1.030 H (1.005-1.025) Urine Protein 30 (1+) H (Neg-Trace) mg/dL Urine Glucose (UA) Negative (Negative) mg/dL Urine Ketones >=160 (Negative) mg/dL Urine Blood Moderate (2+) H (Negative) Urine Nitrite Negative (Negative) Ur Leukocyte Esterase Negative (Negative) Urine RBC 11-20 H (0-2) /HPF Urine WBC 0-5 (0-5) /HPF Ur Squamous Epith Cells 3-5 (0-2) /HPF Urine Bacteria None Seen (None Seen) Hyaline Casts 0-2 (0-2) /LPF Independent Interpretation I performed an independent interpretation of an: EKG and Plain X-Ray Interpretation: Rate: 116 Rhythm: sinus tach [place]: normal Normal P waves. Normal CAMILA. Normal QRS complex. ST T wave : normal no CLAUDIA qTC: normal prior studies: no acute ischemia The study has been interpreted contemporaneously by me. . Radiology Impression Discussion of test interpretation with radiology: I have reviewed the radiologist's reading. Independent Historian Clinical information obtained from an independent historian. History obtained from or confirmed by: Spouse External Record Review External record reviewed: Inpatient record Prescription Management I considered prescription management with: Other Critical Care Time Critical Care Time Critical Care Time: Yes Total Critical Care Time: 35 Attestation: fluid resuscitation witih 2L of IVF I attest to this time spent taking care of the patient Discharge Plan Discharge Clinical Impression: Acute dehydration Vomiting Qualifiers: Vomiting type: unspecified Nausea presence: with nausea Qualified Code(s): R11.2 - Nausea with vomiting, unspecified Patient Disposition: Home, Self-Care Instructions: Dehydration (ED), Acute Nausea and Vomiting (ED) Additional Instructions: slowly advance diet over 48 hours. I would slowly bring in dairy but wait 3 days as it will bloat you. return for worsening symptoms such as difficulty breathing, inability to eat or drink or any other concerns. try the zofran at first and if that doesn't work use the suppository. Prescriptions: New famotidine [Pepcid] 20 mg tablet 20 mg PO DAILY 14 Days Qty: 14 0RF ondansetron 4 mg tablet,disintegrating 4 mg PO Q8H PRN (Reason: nausea and vomiting) Qty: 20 0RF promethazine 25 mg suppository 25 mg AR Q6H PRN (Reason: nausea and vomiting) Qty: 12 0RF No Action albuterol sulfate 90 mcg/actuation HFA aerosol inhaler 1 inh inhalation QID PRN (Reason: shortness of breath or wheezing) Qty: 6.7 0RF albuterol sulfate 2.5 mg/0.5 mL solution for nebulization 5 mg inhalation Q6H PRN (Reason: shortness of breath or wheezing) Qty: 30 0RF prednisone 50 mg tablet 50 mg PO DAILY 4 Days Qty: 4 0RF Rx Instructions: Start 11/23/2022 benzonatate 100 mg capsule 100 mg PO BID PRN (Reason: cough) Qty: 14 0RF benzonatate 100 mg capsule 100 mg PO TID PRN (Reason: cough) Qty: 14 0RF oseltamivir [Tamiflu] 75 mg capsule 75 mg PO BID 5 Days Qty: 10 0RF Stand Alone Forms: Work/School Release
[2023-06-14] MEDS: Metoclopramide HCl 10 MG/2 ML VIAL IVPUSH (08:10)
[2023-06-14] MEDS: diphenhydrAMINE HCL 50 MG/ML VIAL 25 MG IVPUSH (08:10)
[2023-06-14] MEDS: 0.9 % Sodium Chloride 1,000 ML 999 ML IV ×2 (08:10→09:34)
[2023-06-14 08:56] LABS: Lipase 15 U/L (8-78)
[2023-06-14 09:10] VITALS: BP 141/94; PULSE 100; RESP 18; TEMP 36.7; O2SAT 97
--- NOTE | 2023-06-14 09:33 | PC.NURSE ---
PT EARLIER C/O CHEST WALL PAIN/DISC DUE TO INCREASED N/V. PT DENIES ANY CHEST WALL PAIN/DISC AT THIS TIME. DENIES ANY N/V.
== END 2023-06-14 10:18 | disposition home or self-care (01) ==
PROVIDERS: Emergency Medicine; Emergency Provider Emergency Medicine
DX: E86.0 Dehydration (principal); R11.2 Nausea with vomiting, unspecified
CPT/HCPCS: 36415; 71045; 80053; 81001; 83690; 84702; 85025; 93005; 96361; 96374; 96375; 99284; J1200; J2765

== ENCOUNTER → 2023-06-13 23:15 | Outpatient (BNV) | payer OTHER, SELFPAY | PROVIDERS: Emergency Provider Emergency Medicine; Visit Provider Internal Medicine | DX: R00.0 Tachycardia, unspecified (principal) | CPT/HCPCS: 93010 ==